=== PATIENT | male | born 1935 | race Caucasian/White ===

== ENCOUNTER 2024-07-16 11:36 | Day surgery (SDC) | payer OTHER, MEDICARE ==
[2024-07-12 12:03] LABS: BASOPHILS % (AUTO) 0.3 % (0-1); EOSINOPHILS # (AUTO) 0.1 X10'3 (0-0.9); EOSINOPHILS % (AUTO) 1.1 % (0-6); HEMATOCRIT 37.7 % (42.0-52.0); HEMOGLOBIN 13.2 g/dl (14.0-17.9); LYMPHOCYTES # (AUTO) 0.9 X10'3 (1.1-4.8); LYMPHOCYTES % (AUTO) 12.9 % (21-51); MEAN CORPUSCULAR VOLUME 94.4 FL (78-98); MEAN PLATELET VOLUME 8.1 FL (7.4-10.4); MONOCYTES # (AUTO) 0.5 X10'3 (0-0.9); MONOCYTES % (AUTO) 6.6 % (2-12); NEUTROPHILS # (AUTO) 5.8 X10'3 (1.8-7.7); NEUTROPHILS % (AUTO) 79.1 % (42-75); PLATELET COUNT 167 X10'3 (140-440); RED CELL DISTRIBUTION WIDTH 13.9 % (11.5-14.5); WHITE BLOOD COUNT 7.3 X10'3 (4.5-11.0)
[2024-07-12 12:12] LABS: APTT 27 SECONDS (22-32); PROTHROMBIN TIME 10.5 SECONDS (9.0-12.0)
[2024-07-12 12:14] LABS: ANION GAP 6 (8-16); BLOOD UREA NITROGEN 21 MG/DL (7-18); BUN/CREATININE RATIO 17.9 (10.0-20.0); CALCIUM 9.1 MG/DL (8.5-10.1); CHLORIDE 98 MMOL/L (99-107); CHOL/HDL RATIO 2.2 (0.00-4.99); CHOLESTEROL 123 MG/DL (0-200); CREATININE 1.17 MG/DL (0.60-1.10); GLUCOSE 291 MG/DL (70-104); HDL CHOLESTEROL 55 MG/DL (35-60); LDL CHOLESTEROL 47 MG/DL (50-100); POTASSIUM 4.5 MMOL/L (3.5-5.1); SODIUM 134 MMOL/L (135-145); TOTAL CARBON DIOXIDE 29.6 MMOL/L (24-32); TRIGLYCERIDES 184 MG/DL (20-135); eGFR 59 ML/MIN
[2024-07-16] VITALS (12 sets, daily range): BP systolic 115–158; BP diastolic 68–79; PULSE 70–72; RESP 16; TEMP 97.6; O2SAT 93–98
[~2024-07-16] VITALS: Ht 180.3 cm; Wt 93.6 kg
[2024-07-16] MEDS ORDERED: SERT-434 PO (11:40)
[2024-07-16] MEDS ORDERED: LORA-268 PO (11:40)
[2024-07-16] MEDS ORDERED: BUSP7.5T5 PO (11:40)
[2024-07-16] MEDS ORDERED: ATOR20TA PO (11:42)
[2024-07-16] MEDS ORDERED: FINA5TAB11 PO (11:43)
[2024-07-16] MEDS ORDERED: CARB1TAB42 PO (11:43)
[2024-07-16] MEDS ORDERED: MIDO2.5T3 PO (11:44)
[2024-07-16] MEDS ORDERED: METO-384 PO (11:44)
[2024-07-16] MEDS ORDERED: METF-438 PO (11:44)
[2024-07-16] MEDS ORDERED: ASPI81TA52 PO (11:45)
[2024-07-16] MEDS ORDERED: PIOG45TA65 PO (11:45)
[2024-07-16] MEDS ORDERED: SITA50TA13 PO (11:45)
[2024-07-16] MEDS ORDERED: TIOT18CA3 INH (11:46)
[2024-07-16] MEDS: diphenhydrAMINE 25mg capsule PO PRN (13:22)
[2024-07-16] MEDS: LORazepam 0.5 MG tablet PO PRN (13:22)
[2024-07-16] MEDS: normal saline 1,000 ML IV SCH (13:25)
[2024-07-16] MEDS ORDERED: verapamil 2.5 mg/ml inj IV ONE (13:40)
[2024-07-16] MEDS ORDERED: LIDOcaine 1% (10mg/ml) 2ml vial ONE (13:40)
[2024-07-16] MEDS ORDERED: midazolam 1 mg/ML 2ml injection ONE (13:41)
[2024-07-16] MEDS ORDERED: fentaNYL/PF 50MCG/1 ML 2ML syringe ONE (13:41)
[2024-07-16] MEDS ORDERED: iohexol 350MG/ML 100ml bottle IV ONE ×2 (13:41→15:02)
[2024-07-16] MEDS ORDERED: heparin 1,000unit/ml 10ml vial 10 ML ONE (13:41)
[2024-07-16] MEDS ORDERED: nitroGLYCERIN 500mcg/5mL D5W 5 ML IV ONE (13:43)
[2024-07-16] MEDS ORDERED: LIDOcaine 1% 30ml preserv. free vial ONE (14:37)
[2024-07-16] MEDS ORDERED: clopidogrel 300mg tablet ONE (15:23)
[2024-07-16] MEDS ORDERED: aspirin 325mg tablet ONE (15:23)
[2024-07-16] MEDS ORDERED: iohexol 350 MG/ML 50ML vial IV ONE (15:28)
[2024-07-16 15:40] LABS: ISTAT HGB ART 10.5 g/dl (14.0-17.9); ISTAT Hct ART 31 %PCV (42-52); ISTAT O2 SATURATION ARTERIAL 86 % (95-98); ISTAT SOURCE ART
[2024-07-16] MEDS ORDERED: HYDROcodone/acetaminophen 10/325mg tab PO PRN (16:20)
[2024-07-16] MEDS ORDERED: HYDROcodone/acetaminophen 5mg/325mg tablet PO PRN (16:20)
[2024-07-16] MEDS ORDERED: CLOP75TA34 PO (17:20)
[2024-07-17 06:25] LABS: ISTAT HGB MIX 11.2 g/dl (14.0-17.9); ISTAT Hct MIX 33 %PCV (42-52); ISTAT O2 SATURATION MIX VENOUS 55 % (60-80); ISTAT SOURCE VEN
== END 2024-07-16 19:15 | disposition home or self-care (01) ==
LOC: SSTAY O 11:36
PROVIDERS: ATTEND Student in an Organized Health Care Education/Training Program
DX: I35.0 Nonrheumatic aortic (valve) stenosis (principal); I25.10 Atherosclerotic heart disease of native coronary artery without angina pectoris; I11.0 Hypertensive heart disease with heart failure; I50.9 Heart failure, unspecified; E11.9 Type 2 diabetes mellitus without complications; G20.A1 Parkinson's disease without dyskinesia, without mention of fluctuations; Z79.899 Other long term (current) drug therapy; E78.5 Hyperlipidemia, unspecified; Z98.890 Other specified postprocedural states
CPT/HCPCS: 36415; 80048; 80061; 82803; 82948; 85014; 85025; 85610; 85730; 93005; 93456; 99152; 99153; C1874; C9600; J1644; J2003; J2250; J3010; J3490; J7030; Q0163; Q9967; 93460; A6258; A6402; A6449; C1725; C1751; C1769; C1894